=== PATIENT | male | born 1960 | race Caucasian/White ===

== ENCOUNTER 2018-07-19 15:41 | Emergency (ER) | payer OTHER, SELFPAY ==
[2018-07-19 15:43] VITALS: BP 163/82; PULSE 71; RESP 16; TEMP 36.8; O2SAT 99; BMI 22.5
--- NOTE | 2018-07-19 15:57 | ED.DCSUM_ITS ---
- ER Visit Summary Date of Service: 07/19/18 Chief Complaint: Right foot pain History of Present Illness: The patient is a 58 M who started to develop sharp pain along the bottom of his heel this morning. Patient states the pain worsened after standing on his feet at work. He denies any known injury. Den ies paresthesias. Physical Examination: Vital signs include a blood pressure of 163/82. Patient sitting upright in bed no acute distress. Heart is regular rate and rhythm. Lung sounds clear. Right lower extremity examination reveals focal tenderness along the plantar portion of the right foot at the calcaneus. There is no pain with dorsiflexion of the toes. He has strong pulses. No skin changes noted. Normal sensation and normal range of motion are noted. Test Results: Right foot x-rays do reveal a tiny plantar spur. 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 Emergency Department Course and Treatment: Patient be treated with a course of prednisone. He is instructed to take Tylenol with this. Once his steroids have finished he can take anti-inflammatories. I encouraged Tylenol with the prednisone so that it is easier on his stomach. He voices understanding and agreement. He will get a shoe insert to pad the heel as well. Treatment Plan: [] Disposition: Discharge Impression: Plantar spur right foot This note was generated with [employer] dictation software. It may contain incorrect words, spelling, and punctuation that were not noted in review of the chart prior to signing ED Disposition - Plan for ED Patient: Referrals: Grady Neves MD [Primary Care Provider] -
--- NOTE | 2018-07-19 16:04 | RAD_ITS ---
STUDY: X-RAY - RIGHT FOOT CLINICAL: Male, 58 years old. Heel pain started this morning, worsening throughout the day TECHNIQUE: 3 view(s) of the foot. COMPARISON: None. FINDINGS: There is a tiny plantar calcaneal spur. Normal visualized subtalar, talonavicular, calcaneocuboid, tarsal and tarsometatarsal articulations. Normal metatarsi. 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 Normal tibial and fibular sesamoid bones. Normal interphalangeal joint of the great toe. Normal phalanges of the great toe. Normal second through fifth metatarsophalangeal joints. Normal interphalangeal joints and phalanges of the lesser toes. The soft tissue structures are unremarkable. RAD/Foot min 3 Views IMPRESSION: Tiny plantar spur. Minimal first MTP joint arthrosis. Electronically Signed: Mark Burks MD at 16:20 EST , Service support ,
--- NOTE | 2018-07-19 17:06 | ED.DEP ---
ED Disposition - Plan for ED Patient: Disposition: Home or Assisted Living Instructions: ED Heel Spur Prescriptions: predniSONE tablet 40 mg PO DAILY #8 tablet Referrals: Grady Neves MD [Primary Care Provider] - 1 Week
[2018-07-19] MEDS: predniSONE 20 MG Tablet 40 MG PO (17:27)
[2018-07-19] MEDS: Acetaminophen 500 MG Tablet 1000 MG PO (17:27)
== END 2018-07-19 17:36 | disposition home or self-care (01) ==
PROVIDERS: Emergency Provider Emergency Medicine; Family Provider Family Medicine; PCP Family Medicine
DX: M77.31 Calcaneal spur, right foot (principal)
CPT/HCPCS: 73630; 99283